=== PATIENT | male | born 1985 | race Caucasian/White ===

== ENCOUNTER 2016-12-06 19:27 | Emergency (ER) | payer MEDICAID ==
--- NOTE | 2016-12-06 19:42 | ED ---
General Adult HPI - General Chief complaint: Wound/Laceration Stated complaint: Hand laceration Time Seen by Provider: 12/06/16 19:32 Source: patient, RN notes reviewed Mode of arrival: ambulatory Limitations: no limitations - History of Present Illness Initial comments: patient's a 31-year-old male who presents emergency room today with a chief complaint of laceration to the volar aspect of the right index finger. He does admit that he was walking when he accidentally stepped into a hole cutting his hand on a possible pipe. He states his tetanus is up-to-date. He does admit to pain locally to the area. States he has full range of motion. He denies any other complaints or associated symptoms. Patient denies any recent fever, chills, shortness of breath, chest pain, back pain, abdominal pain, nausea or vomiting, numbness or tingling, dysuria or hematuria, constipation or diarrhea, headaches or visual changes, or any other complaints. - Related Data Previous Rx's Medication Instructions Recorded Cephalexin [Keflex] 500 mg PO Q12HR 10 Days 12/06/16 Allergies Allergy/AdvReac Type Severity Reaction Status Date / Time No Known Allergies Allergy Verified 12/06/16 19:33 Review of Systems ROS Statement: Those systems with pertinent positive or pertinent negative responses have been documented in the HPI. ROS Other: All systems not noted in ROS Statement are negative. Past Medical History Past Medical History: No Reported History History of Any Multi-Drug Resistant Organisms: None Reported Past Surgical History: No Surgical Hx Reported Past Psychological History: ADD/ADHD Smoking Status: Light tobacco smoker Past Alcohol Use History: Occasional Past Drug Use History: None Reported General Exam - General Exam Comments Initial Comments: General: The patient is awake and alert, in no distress, and does not appear acutely ill. Neck: The neck is supple, there is no tenderness or JVD. Cardiovascular: There is a regular rate and rhythm. No murmur, rub or gallop is appreciated. Respiratory: Lungs are clear to auscultation, respirations are non-labored, breath sounds are equal. No wheezes, stridor, rales, or rhonchi. Musculoskeletal: patient shows full range of motion. Strength 5/5 with both extension and flexion of the right index finger. Sensations are intact pulses equal bilaterally 2+. Neurological: A&O x 3. CN II-XII intact, There are no obvious motor or sensory deficits. Coordination appears grossly intact. Speech is normal. Skin: patient does have a laceration to the volar aspect of the right index finger going up into the volar aspect of the right hand. Mild venous oozing Psychiatric: Normal mood and affect. Limitations: no limitations Course Vital Signs 12/06/16 19:33 Temperature 98.8 F Pulse Rate 102 H Respiratory 20 Rate Blood Pressure 148/92 O2 Sat by Pulse 98 Oximetry Procedures - Procedures Initial comment: 5 cm linear laceration to the volar aspect of the right hand. Mild venous oozing. The skin was anesthetized with 1% lidocaine. The laceration was then cleansed with Betadine and irrigated with normal saline. The wound was inspected , and there was no evidence of injury to deep structures. all tendons are intact. Foreign body was removed here small foreign bodies also irrigated and removed. A total of 16 skin sutures were placed utilizing 4-0 nylon. Medical Decision Making - Medical Decision Making Patient laceration cleaned and irrigated here in the emergency room. Patient's x-rays negative for any acute fracture dislocation. Results were discussed with patient. Patient's tetanus up-to-date. Patient will be started on antibiotics. Advised to follow-up with orthopedics. Advised return for any other concerns.. Have sutures removed in 8-10 days. Disposition Clinical Impression: Hand laceration Disposition: HOME SELF-CARE Condition: Good Instructions: Laceration (ED) Additional Instructions: Please return to the emergency room in 8-10 days to have sutures removed. Please watch for any signs of infection which may include increased pain, swelling, redness, fever or chills. Please return to emergency room for any signs of infection do occur. Please use clean soap and water over the area to prevent scabbing over your stitches. Please leave wound covered for the first 24-48 hours and then leave wound open to air. Please return to the emergency room for any other concerns. Prescriptions: Cephalexin [Keflex] 500 mg PO Q12HR 10 Days Referrals: Maurice Lewis MD [Primary Care Provider] - 1-2 days Prince Rodriguez DO [Doctor of Osteopathic Medicine] - 1-2 days Time of Disposition: 20:26
--- NOTE | 2016-12-06 20:06 | XR ---
EXAMINATION TYPE: XR hand limited RT DATE OF EXAM: 12/06/2016 COMPARISON: NONE HISTORY: Laceration TECHNIQUE: 2 views FINDINGS: There are small densities in the soft tissues at the proximal phalanx of the index finger c onsistent with foreign bodies and laceration. I see no fracture line. Joint spaces are normal. IMPRESSION: Soft tissue foreign bodies and laceration deformity of the proximal index finger. No frac ture seen.
[2016-12-06 20:38] VITALS: BP 123/70; PULSE 83; RESP 18; TEMP 98.6
== END 2016-12-06 20:41 | disposition home or self-care (01) ==
LOC: EC 19:27
DX: S61.220A Laceration with foreign body of right index finger without damage to nail, initial encounter (principal); F17.200 Nicotine dependence, unspecified, uncomplicated; W17.2XXA Fall into hole, initial encounter; Y93.01 Activity, walking, marching and hiking
CPT/HCPCS: 12032; 12042; 99283

== ENCOUNTER → 2016-12-31 | Outpatient (CLI) | payer MEDICAID ==
[2016-12-31 09:56] LABS: Basophils % (A) 0 %; CH 31.5; CHCM 35.7; Eosinophils # (A) 0.2 k/uL (0-0.7); Eosinophils % (A) 2 %; HCT 45.7 % (39.0-53.0); HDW 2.56; HGB 16.4 gm/dL (13.0-17.5); Luc # (Auto) 0.11; Luc % (Auto) 2; Lymphocytes # (A) 2.7 k/uL (1.0-4.8); Lymphocytes % (A) 39 %; MCH 31.9 pg (25.0-35.0); MCHC 35.9 g/dL (31.0-37.0); MCV 88.7 fL (80.0-100.0); Monocytes # (A) 0.4 k/uL (0-1.0); Monocytes % (A) 5 %; Neutrophils # (A) 3.4 k/uL (1.3-7.7); Neutrophils % (A) 51 %; RBC 5.15 m/uL (4.30-5.90); RDW 12.2 % (11.5-15.5); WBC 6.8 k/uL (3.8-10.6); WBC (Perox) 6.58
[2016-12-31 09:59] LABS: ALT 45 U/L (21-72); AST 22 U/L (17-59); Alkaline Phosphatase 60 U/L (38-126); Anion Gap 10 mmol/L; Blood Urea Nitrogen 17 mg/dL (9-20); Calcium 9.8 mg/dL (8.4-10.2); Carbon Dioxide 26 mmol/L (22-30); Chloride 105 mmol/L (98-107); Cholesterol 246 mg/dL (<200); Glucose 89 mg/dL (74-99); HDL Cholesterol 45 mg/dL (40-60); Non-African American GFR(MDRD) >60 (>60 ml/min/1.73 sqM); Potassium 4.7 mmol/L (3.5-5.1); Sodium 141 mmol/L (137-145); Total Bilirubin 0.8 mg/dL (0.2-1.3); Total Protein 7.3 g/dL (6.3-8.2)
== END | disposition home or self-care (01) ==
LOC: LABMAIN 09:23
PROVIDERS: ATTEND Internal Medicine
DX: Z00.00 Encounter for general adult medical examination without abnormal findings (principal)
CPT/HCPCS: 36415; 80053; 80061; 85025

== ENCOUNTER → 2017-05-14 | Outpatient (CLI) | payer MEDICAID ==
[2017-05-14 13:54] LABS: Basophils % (A) 1 %; Eosinophils # (A) 0.3 k/uL (0-0.7); Eosinophils % (A) 3 %; HGB 16.2 gm/dL (13.0-17.5); Lymphocytes % (A) 40 %; MCH 30.9 pg (25.0-35.0); MCHC 34.4 g/dL (31.0-37.0); MCV 89.6 fL (80.0-100.0); Mean Platelet Volume 7.5; Monocytes # (A) 0.4 k/uL (0-1.0); Monocytes % (A) 6 %; Neutrophils # (A) 3.7 k/uL (1.3-7.7); Neutrophils % (A) 49 %; Platelet Count 206 k/uL (150-450); RBC 5.25 m/uL (4.30-5.90); RDW 14.2 % (11.5-15.5); WBC 7.5 k/uL (3.8-10.6)
[2017-05-14 14:37] LABS: ALT 66 U/L (21-72); AST 31 U/L (17-59); Albumin 4.9 g/dL (3.5-5.0); Alkaline Phosphatase 59 U/L (38-126); Anion Gap 11 mmol/L; Blood Urea Nitrogen 19 mg/dL (9-20); Calcium 10.5 mg/dL (8.4-10.2); Carbon Dioxide 30 mmol/L (22-30); Chloride 100 mmol/L (98-107); Cholesterol 245 mg/dL (<200); Glucose 92 mg/dL (74-99); HDL Cholesterol 41 mg/dL (40-60); LDL Cholesterol,Calculated 170 mg/dL (0-99); Potassium 4.5 mmol/L (3.5-5.1); Sodium 141 mmol/L (137-145); Total Bilirubin 0.7 mg/dL (0.2-1.3); Total Protein 7.7 g/dL (6.3-8.2); Triglycerides 168 mg/dL (<150)
== END | disposition home or self-care (01) ==
LOC: LABWHC1 12:58
PROVIDERS: ATTEND Internal Medicine
DX: Z00.00 Encounter for general adult medical examination without abnormal findings (principal); E78.2 Mixed hyperlipidemia
CPT/HCPCS: 36415; 80053; 80061; 85025

== ENCOUNTER → 2019-04-02 | Outpatient (CLI) | payer MEDICAID ==
[2019-04-02 17:22] LABS: Basophils # (A) 0.1 k/uL (0-0.2); Basophils % (A) 1 %; Eosinophils # (A) 0.2 k/uL (0-0.7); Eosinophils % (A) 2 %; HCT 49.6 % (39.0-53.0); HGB 16.9 gm/dL (13.0-17.5); Lymphocytes # (A) 2.6 k/uL (1.0-4.8); Lymphocytes % (A) 29 %; MCH 31.3 pg (25.0-35.0); MCHC 34.1 g/dL (31.0-37.0); MCV 91.6 fL (80.0-100.0); Mean Platelet Volume 6.6; Monocytes # (A) 0.5 k/uL (0-1.0); Monocytes % (A) 5 %; Neutrophils # (A) 5.5 k/uL (1.3-7.7); Neutrophils % (A) 61 %; Platelet Count 255 k/uL (150-450); RBC 5.42 m/uL (4.30-5.90); RDW 12.3 % (11.5-15.5)
[2019-04-03 00:34] LABS: African American GFR (CKD) 92.2 (60.0-200.0); Albumin 5.1 g/dL (3.80-4.90); Albumin/Globulin Ratio 2.55 (1.60-3.17); Anion Gap 13.2 mmol/L (4.00-12.00); BUN/Creat Ratio 16.67 Ratio (12.00-20.00); Calcium 10.4 mg/dL (8.7-10.3); Carbon Dioxide 21.8 mmol/L (21.6-31.8); Non-African American GFR(CKD) 79.5 (60.0-200.0); Potassium 4.5 mmol/L (3.5-5.5); Total Bilirubin 1.1 mg/dL (0.2-1.2); Total Protein 7.1 g/dL (6.2-8.2)
[2019-04-03 00:35] LABS: Chol/HDL Ratio 6.44; LDL Cholesterol,Calculated 204.2 mg/dL (0.0-131.0); VLDL Calculation 18.8 mg/dL (5.00-40.00)
[2019-04-03 00:39] LABS: T4, Free (Free Thyroxine) 1.3 ng/dL (0.80-1.80)
== END ==
LOC: LABMAIN 16:03
PROVIDERS: ATTEND Internal Medicine
DX: Z00.00 Encounter for general adult medical examination without abnormal findings (principal); Z12.5 Encounter for screening for malignant neoplasm of prostate
CPT/HCPCS: 84439; 36415; 84481; 80061; 80053; 84443; 85025; 82306; G0103

== ENCOUNTER 2020-01-24 18:23 | Emergency (ER) | payer MEDICAID, OTHER ==
--- NOTE | 2020-01-24 18:59 | ED ---
General Adult HPI - General Stated complaint: [facility]-needlestick - History of Present Illness Initial comments: 34-year-old male patient presents to the emergency department today for evaluation after sustaining a needlestick injury while at work. 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 States his left fourth finger was affected. Patient states he did cleanse the area. He states he is up-to-date on his tetanus vaccine and hepatitis B vaccine. Denies any other injuries or concerns. - Related Data Previous Rx's Medication Instructions Recorded Cephalexin [Keflex] 500 mg PO Q12HR 10 Days cap 12/06/16 Allergies Allergy/AdvReac Type Severity Reaction Status Date / Time No Known Allergies Allergy Verified 12/06/16 19:33 Review of Systems ROS Statement: Those systems with pertinent positive or pertinent negative responses have been documented in the HPI. ROS Other: All systems not noted in ROS Statement are negative. Past Medical History Past Medical History: No Reported History History of Any Multi-Drug Resistant Organisms: None Reported Past Surgical History: No Surgical Hx Reported Past Psychological History: ADD/ADHD Past Alcohol Use History: Occasional Past Drug Use History: None Reported General Exam General appearance: alert, in no apparent distress Respiratory exam: Present: normal lung sounds bilaterally. Absent: respiratory distress, wheezes, rales, rhonchi, stridor Cardiovascular Exam: Present: regular rate, normal rhythm, normal heart sounds. Absent: systolic murmur, diastolic murmur, rubs, gallop, clicks Extremities exam: Present: full ROM, normal capillary refill, other (Tiny puncture wound noted to dorsal aspect of the left fourth finger.). Absent: normal inspection, tenderness, pedal edema, joint swelling, calf tenderness Neurological exam: Present: alert, oriented X3, CN II-XII intact Psychiatric exam: Present: normal affect, normal mood Skin exam: Present: warm, dry, intact, normal color. Absent: rash Medical Decision Making - Medical Decision Making 34-year-old male patient presents to the emergency department today for evaluation of needlestick injury to the left fourth finger. There is a tiny puncture noted to the left fourth finger. Patient is up-to-date on his hepati tis B and tetanus vaccines. Source is available for blood draw we will send rapid HIV testing. Patient did have his blood drawn. He is instructed to follow-up with employee health as needed and for further testing as directed. He is instructed to follow-up with his primary care physician for recheck in 1-2 days. Return parameters were discussed in detail. He verbalizes understanding and agrees with this plan. Disposition Clinical Impression: Accidental needlestick injury with exposure to body fluid Disposition: HOME SELF-CARE Condition: Good Instructions (If sedation given, give patient instructions): Body Substance Exposure (ED) Additional Instructions: Keep area clean and dry. Follow-up with employee health services as directed for further testing. Return to the emergency department immediately for any new, worsening, or concerning symptoms. Is patient prescribed a controlled substance at d/c from ED?: No Referrals: Soren Macedo [Primary Care Provider] - 1-2 days Time of Disposition: 18:59
[2020-01-24 19:32] VITALS: BP 143/80; PULSE 82; RESP 18; TEMP 97
== END 2020-01-24 19:09 | disposition home or self-care (01) ==
LOC: EC 18:23
DX: S61.235A Puncture wound without foreign body of left ring finger without damage to nail, initial encounter (principal); Z77.21 Contact with and (suspected) exposure to potentially hazardous body fluids; W46.1XXA Contact with contaminated hypodermic needle, initial encounter; Y92.69 Other specified industrial and construction area as the place of occurrence of the external cause; Y99.0 Civilian activity done for income or pay
CPT/HCPCS: 99283

== ENCOUNTER → 2022-09-10 | Outpatient (CLI) | payer BC ==
[2022-09-10 11:26] LABS: Basophils % (A) 0 %; Eosinophils # (A) 0.2 k/uL (0-0.7); Eosinophils % (A) 3 %; HCT 46.2 % (39.0-53.0); HGB 16.3 gm/dL (13.0-17.5); Lymphocytes # (A) 3.1 k/uL (1.0-4.8); Lymphocytes % (A) 44 %; MCHC 35.2 g/dL (31.0-37.0); Mean Platelet Volume 7.3; Monocytes # (A) 0.3 k/uL (0-1.0); Monocytes % (A) 5 %; Neutrophils # (A) 3.3 k/uL (1.3-7.7); Neutrophils % (A) 46 %; Platelet Count 248 k/uL (150-450); RBC 5.25 m/uL (4.30-5.90); RDW 12.3 % (11.5-15.5); WBC 7.1 k/uL (3.8-10.6)
[2022-09-10 11:31] LABS: ALT 27 U/L (4-49); AST 27 U/L (17-59); African American GFR (CKD) >90 (>60 ml/min/1.73 sqM); Albumin 4.9 g/dL (3.5-5.0); Albumin/Globulin Ratio 1.8; Alkaline Phosphatase 62 U/L (38-126); Anion Gap 12 mmol/L; Blood Urea Nitrogen 18 mg/dL (9-20); Calcium 9.7 mg/dL (8.4-10.2); Carbon Dioxide 23 mmol/L (22-30); Chloride 104 mmol/L (98-107); Globulin 2.8 g/dL; Glucose 88 mg/dL (74-99); Non-African American GFR(CKD) >90 (>60 ml/min/1.73 sqM); Potassium 4.6 mmol/L (3.5-5.1); Sodium 139 mmol/L (137-145); Total Bilirubin 0.9 mg/dL (0.2-1.3); Total Protein 7.7 g/dL (6.3-8.2)
[2022-09-10 11:47] LABS: T4, Free (Free Thyroxine) 1.02 ng/dL (0.78-2.19)
[2022-09-10 16:07] LABS: Chol/HDL Ratio 6.96 Ratio; LDL Cholesterol,Calculated 189.7 mg/dL (0.0-131.0)
== END | disposition home or self-care (01) ==
LOC: LABMAIN 10:33
PROVIDERS: ATTEND Internal Medicine
DX: Z11.59 Encounter for screening for other viral diseases (principal); E78.2 Mixed hyperlipidemia
CPT/HCPCS: 80053; 80061; 84439; 84443; 85025; 86803

== ENCOUNTER → 2023-09-22 | Outpatient (CLI) | payer BC ==
--- NOTE | 2023-09-22 08:43 | US ---
EXAMINATION TYPE: US liver DATE OF EXAM: 09/22/2023 COMPARISON: NONE CLINICAL INDICATION: Male, 38 years old with history of R74.01 ELEVATED ALT; abn labs checked once, n o symptoms TECHNIQUE: Multiple sonographic images of the right upper quadrant are obtained. FINDINGS: EXAM MEASUREMENTS: Liver Length: 14.5 cm Gallbladder Wall: 0.2 cm CBD: 0.4 cm Right Kidney: 11.4 x 4.9 x 5.3 cm [employer] NOTES: bowel gas Pancreas: portions seen appear wnl Liver: intercostal imaging due to bowel gas Gallbladder: wnl Evidence for sonographic Diaz's sign: no CBD: wnl Right Kidney: wnl IMPRESSION: 1. No evidence for acute process. 2. Hepatic steatosis.
== END | disposition home or self-care (01) ==
LOC: RADUSWWP 08:06
PROVIDERS: ATTEND Internal Medicine
DX: K76.0 Fatty (change of) liver, not elsewhere classified (principal); R74.01 Elevation of levels of liver transaminase levels
CPT/HCPCS: 76705

== ENCOUNTER → 2024-06-15 | Outpatient (CLI) | payer BC ==
[2024-06-16 14:37] LABS: C. trachomatis,PCR Negative (Negative)
[2024-06-16 14:44] LABS: N. gonorrhoeae,PCR Negative (Negative)
== END | disposition home or self-care (01) ==
LOC: LABWHC1 14:02
PROVIDERS: ATTEND Internal Medicine
DX: N45.1 Epididymitis (principal)
CPT/HCPCS: 87491; 87591